=== PATIENT | female | born 1980 | race African-American/Black ===

== ENCOUNTER 2021-09-05 18:34 | Emergency (ER) | payer SELFPAY ==
[~2021-09-05] VITALS: Ht 165.1 cm; Wt 90.9 kg
[2021-09-05] MEDS ORDERED: CYCLOBENZAPRINE HCL 10 MG TABLET PO ONE (19:15)
[2021-09-05] MEDS ORDERED: LIDOCAINE 5% TRANSDERMAL PATCH TD ONE (19:15)
[2021-09-05] MEDS ORDERED: KETOROLAC TROMETHAMINE 30 MG/ML VIAL IM ONE (19:15)
[2021-09-05 20:12] VITALS: BP 128/80
[2021-09-05] MEDS ORDERED: CYCL-448 PO (20:27)
== END 2021-09-05 20:34 | disposition home or self-care (01) ==
LOC: EMS 18:34
DX: M62.838 Other muscle spasm (principal); F12.90 Cannabis use, unspecified, uncomplicated
CPT/HCPCS: 99283; 96372; J1885